=== PATIENT | male | born 1950 | race Caucasian/White ===

== ENCOUNTER 2017-03-20 23:31 | Emergency (ER) | END 2017-03-21 05:33 | disposition home or self-care (01) ==

== ENCOUNTER 2018-07-16 18:39 | Inpatient (IN) | payer MEDICAID ==
[~2018-07-16] VITALS: Ht 165.1 cm; Wt 62.0 kg
[~2018-07-16 18:39] MED LIST: CHOL100062 PO; CIPR500T4 PO; HYDR-762 PO; IBUP-1541 PO
[2018-07-16] MEDS ORDERED: FAMOTIDINE 20 MG INJ IV STA (20:28)
[2018-07-16] MEDS ORDERED: LIDOCAINE/MYLANTA 40 ML BTL PO STA (20:28)
[2018-07-16] MEDS ORDERED: HYDROmorphONE 1 MG/ML SYG IV STA (20:28)
[2018-07-16] MEDS ORDERED: ONDANSETRON 4 MG INJ IV STA (20:28)
[2018-07-16] MEDS ORDERED: SOD CHLORIDE 0.9% 1,000 ML IV STA (20:28)
[2018-07-16] MEDS ORDERED: BELLADONNA/PHENOBARBITAL TAB PO STA (20:28)
[2018-07-16] MEDS ORDERED: IOHEXOL 300MG/ML 150 ML BTL ONE (21:58)
[2018-07-16] MEDS ORDERED: SOD CHLORIDE 0.9% 100 ML ONE (21:58)
--- NOTE | 2018-07-16 22:34 | ERD ---
ER Documentation Chief Complaint Chief Complaint AP, VOMIT, DIARRHEA X'S 2 DAYS HPI This is a 67-year-old male complaining of mid abdominal pain/right mid abdominal pain with nausea vomiting diarrhea for the past 2 days. Vomiting is nonbilious nonbloody. No blood in his diarrhea there is no melena or tarry stools. He says he has a burning epigastrium. He says he has a history of ulcers and gastritis in the past. No chest pain or shortness of breath no dysuria hematuria no fever. ROS All systems reviewed and are negative except as per history of present illness. Medications Home Meds Reported Medications Naproxen* (Naproxen*) 500 Mg Tablet, 500 MG PO BID PRN for PAIN, TAB 07/17/18 Ranitidine Hcl* (Ranitidine Hcl*) 150 Mg Tablet, 150 MG PO HS, #30 TAB 07/17/18 Losartan Potassium* (Losartan Potassium*) 100 Mg Tablet, 100 MG PO DAILY, TAB 07/17/18 Discontinued Reported Medications Cholecalciferol* (Vitamin D3*) 1,000 Unit Tablet, 1000 UNIT PO BID, TAB 10/01/14 Ibuprofen* (Ibuprofen*) 400 Mg Tablet, 400 MG PO Q12 PRN for PAIN, TAB 10/01/14 Discontinued Scripts Hydrocodone Bit-Acetaminophen* ([place]*) 10-325 Mg Tablet, 1 TAB PO Q6 PRN for PAIN, #7 TAB Prov:JOSEPH REYNOSO MD 10/01/14 Ciprofloxacin Hcl* (Ciprofloxacin Hcl*) 500 Mg Tablet, 500 MG PO BID for 7 Days, TAB Prov:JOSEPH REYNOSO MD 10/01/14 Allergies Allergies: Coded Allergies: No Known Allergy (Unverified , 10/01/14) PMhx/Soc History of Surgery: No Anesthesia Reaction: No Hx Neurological Disorder: No Hx Respiratory Disorders: No Hx Cardiac Disorders: No (HTN, HIGH CHOLESTEROL) Hx Psychiatric Problems: No Hx Miscellaneous Medical Probl: Yes (DM) Hx Alcohol Use: Yes (DAILY) Hx Substance Use: No Hx Tobacco Use: No FmHx Family History: No coronary disease Physical Exam Vitals Vital Signs Date Temp Pulse Resp B/P (MAP) Pulse Ox O2 O2 Flow FiO2 Time Delivery Rate 07/16/18 58 16 146/82 94 Room Air 22:00 (103) 07/16/18 61 16 142/87 98 Room Air 20:00 (105) 07/16/18 99.5 76 18 165/72 96 18:43 (103) Physical Exam Const: Well-developed, well-nourished Head: Atraumatic, normocephalic Eyes: Normal Conjunctiva, PERRLA, EOMI, normal sclera, no nystagmus ENT: Normal External Ears, Nose and Mouth, moist mucus membranes. Neck: Full range of motion. No meningismus, no lymphadenopathy. Resp: Clear to auscultation bilaterally, no wheezing, rhonchi, rales Cardio: Regular rate and rhythm, no murmurs, S1 S2 present Abd: Soft, mild to moderate mid abdominal/right mid abdomen and epigastric tenderness, non distended. Normal bowel sounds, no guarding or rebound, no pulsitile abdominal masses or bruits Skin: No petechiae or rashes, no ecchymosis , no maculopapular rash Back: No midline or flank tenderness Ext: No cyanosis, or edema, FROM x 4, normal inspection, neurovascularly intact x 4 Neur: Awake and alert, STR 5/5 x 4, sensation intact x 4, no focal findings, cerebellum intact Psych: Normal Mood and Affect Result Diagram: 07/16/18195707/16/181957 Results 24 hrs Laboratory Tests Test 07/16/18 19:58 White Blood Count 14.3 10^3/ul Red Blood Count 4.38 10^6/ul Hemoglobin 12.7 g/dl Hematocrit 38.4 % Mean Corpuscular Volume 87.7 fl Mean Corpuscular Hemoglobin 29.0 pg Mean Corpuscular Hemoglobin Concent 33.1 g/dl Red Cell Distribution Width 15.2 % Platelet Count 178 10^3/UL Mean Platelet Volume 9.5 fl Immature Granulocytes % 0.600 % Neutrophils % 85.2 % Lymphocytes % 4.6 % Monocytes % 5.2 % Eosinophils % 4.2 % Basophils % 0.2 % Nucleated Red Blood Cells % 0.0 /100WBC Immature Granulocytes # 0.080 10^3/ul Neutrophils # 12.2 10^3/ul Lymphocytes # 0.7 10^3/ul Monocytes # 0.7 10^3/ul Eosinophils # 0.6 10^3/ul Basophils # 0.0 10^3/ul Nucleated Red Blood Cells # 0.0 10^3/ul Sodium Level 137 mmol/L Potassium Level 3.5 mmol/L Chloride Level 97 mmol/L Carbon Dioxide Level 29 mmol/L Anion Gap 11 Blood Urea Nitrogen 12 mg/dl Creatinine 0.76 mg/dl Est Glomerular Filtrat Rate mL/min > 60 mL/min Glucose Level 113 mg/dl Calcium Level 9.1 mg/dl Total Bilirubin 1.2 mg/dl Direct Bilirubin 0.00 mg/dl Indirect Bilirubin 1.2 mg/dl Aspartate Amino Transf (AST/SGOT) 19 IU/L Alanine Aminotransferase (ALT/SGPT) 14 IU/L Alkaline Phosphatase 88 IU/L Total Protein 7.4 g/dl Albumin 4.1 g/dl Globulin 3.30 g/dl Albumin/Globulin Ratio 1.24 Lipase 55 U/L Current Medications Medications Dose Sig/Ines Start Time Status Last (Trade) Ordered Route PRN Stop Time Admin Dose Reason Admin Sodium 1,000 ml @ Q1H STAT 07/16/18 DC 07/16/18 Chloride 1,000 mls/hr IV 20:28 20:37 07/16/18 21:27 1 mg ONCE STAT 07/16/18 DC 07/16/18 Hydromorphone IV 20:28 20:37 HCl 07/16/18 20:30 (Dilaudid) Ondansetron 4 mg ONCE STAT 07/16/18 DC 07/16/18 HCl (Zofran IV 20:28 20:37 Inj) 07/16/18 20:30 Famotidine 20 mg ONCE STAT 07/16/18 DC 07/16/18 (Pepcid Iv) IV 20:28 20:37 07/16/18 20:30 40 ml ONCE STAT 07/16/18 DC 07/16/18 Miscellaneous PO 20:28 20:37 Medication 07/16/18 20:30 (Gi Cocktail (2)) Belladonna/ 2 tab ONCE STAT 07/16/18 DC 07/16/18 Phenobarbital PO 20:28 20:37 () 07/16/18 20:30 IV Flush 10 ml STK-MED 07/16/18 DC (NS 10 ml) ONCE .ROUTE 21:58 07/16/18 21:59 Sodium 100 ml @ ud STK-MED 07/16/18 DC Chloride ONCE .ROUTE 21:58 07/16/18 21:59 Iohexol 150 ml STK-MED 07/16/18 DC (Omnipaque ONCE .ROUTE 21:58 300mg/ ml) 07/16/18 21:59 Ertapenem 1 100 ml @ ONCE ONCE 07/17/18 gm/ Sodium 200 mls/hr IVPB 00:30 Chloride 07/17/18 00:59 Procedures/MDM Radiology Main Line: [phone] DIAGNOSTIC IMAGING REPORT Patient: ADOLFO DASH : 1950 Age: 67 Sex: M MR #: [id number] DOS: 07/16/182108 Ordering MD: SHELIA LEÓN DO Location: E/R Room/Bed: PROCEDURE: US Abdomen. CLINICAL INDICATION: abdominal pain TECHNIQUE: Multiple real-time images were acquired of the patient's right upper quadrant abdomen and retroperitoneum utilizing a high resolution transducer. COMPARISON: 09/21/2014 FINDINGS: The liver demonstrates normal echogenicity. The liver is normal in size and no focal solid lesions are seen. The liver measures 15.2 cm in length. The portal vein is patent with normal direction of flow. No intrahepatic biliary dilatat ion is seen. No gallstones are identified within the gallbladder. There is no pericholecystic fluid or gallbladder wall thickening. The common bile duct measures 5 mm in maximal dimension. The pancreas is not well seen due to overlying bowel gas. No free fluid is identified. The right kidney is normal in size, and demonstrate normal echogenicity and cortical thickness. The right kidney measures 10.8 cm in long dimension. There is no evidence of hydronephrosis. There are no kidney stones. RPTAT: AA IMPRESSION: Unremarkable right upper quadrant abdominal ultrasound. .Norberto Reyes MD, MD Date Time Electronically viewed and signed by .Norberto Reyes MD, on 07/16/2018 21:52 .S/ CC: SHELIA LEÓN DO [id number] DIAGNOSTIC IMAGING REPORT Patient: ADOLFO DASH : 1950 Age: 67 Sex: M [id number] DOS: 07/16/182107 Ordering MD: SHELIA LEÓN DO Location: E/R Room/Bed: PROCEDURE: CT Abdomen and Pelvis With Intravenous Contrast CLINICAL INDICATION: Abdominal pain TECHNIQUE: Axial computed tomography images of the abdomen and pelvis with intravenous contrast. Sagittal and coronal reformatted images were created and reviewed. CTDIvol (mGy) = 8.36; total DLP (mGy-cm) = 487.46. This CT exam was performed using one or more of the following dose reduction techniques: automated exposure control, adjustment of the mA and/or kV according to patient size, and/or use of iterative reconstruction technique. DICOM images are available. CONTRAST: 99 mL of Omnipaque-300 was administered intravenously. COMPARISON: CT abdomen pelvis dated 10/01/2014 (10/01/2014). FINDINGS: LUNG BASES: Unremarkable. No mass. No consolidation. ABDOMEN: LIVER: Calcified granuloma in the dome of the liver. Mild hepatomegaly noted. No focal liver masses are demonstrated. GALLBLADDER AND BILE DUCTS: Unremarkable. No calcified stones. No ductal dilation. PANCREAS: Unremarkable. No mass. No ductal dilation. SPLEEN: Unremarkable. No splenomegaly. ADRENALS: Unremarkable. No mass. KIDNEYS AND URETERS: Unremarkable. No solid mass. No hydronephrosis. STOMACH AND BOWEL: Unremarkable. No obstruction. No mucosal thickening. PELVIS: APPENDIX: The appendix is upper limit of normal in size, measuring 6 mm in maximum diameter. There is minimal stranding of the periappendiceal fat. The appendix appears slightly more prominent when compared to 10/01/2014. These findings are concerning for early appendicitis, in the proper clinical setting. BLADDER: Unremarkable. No mass. REPRODUCTIVE: Unremarkable as visualized. ABDOMEN and PELVIS: INTRAPERITONEAL SPACE: Trace of free fluid/ascites in the subhepatic space and in the pelvis. No free air. BONES/JOINTS: No acute fracture. No dislocation. SOFT TISSUES: Unremarkable. VASCULATURE: Unremarkable. LYMPH NODES: Unremarkable. No enlarged lymph nodes. IMPRESSION: 1. The appendix is upper limit of normal in size, measuring 6 mm in maximum diameter. There is minimal stranding of the periappendiceal fat. The appendix appears slightly more prominent when compared to 10/01/2014. These findings are concerning for early appendicitis, in the proper clinical setting. It is also noted the appendix extends cephalad toward the subhepatic space, which may localize pain to the right upper quadrant. Please correlate with additional laboratory data and physical exam. 2. Trace of free fluid/ascites in the subhepatic space and in the pelvis. No loculated fluid collection/abscess. This report contains findings which may be critical to patient care. Findings were discussed by telephone with Dr. León on 07/17/2018 at 12:20 a.m.. The findings were acknowledged and understood. RPTAT: [facility] Cynthia Mejia Physician Extended Day Teacher Date Time Electronically viewed and signed by Cynthia Mejia Physician Extended Day Teacher on 07/17/2018 00:22 RmC/ CC: SHELIA LEÓN DO [id number] Spoke with general surgeon Dr. Amezquita and will give 1 g of Invanz admit for appendicitis Departure Diagnosis: Primary Impression: Appendicitis Appendicitis type: acute appendicitis Acute appendicitis type: unspecified acute appendicitis type Qualified Codes: K35.80 - Unspecified acute appendicitis Condition: Stable SHELIA LEÓN DO July 16, 2018 22:34
[2018-07-17] MEDS ORDERED: LOSA100T15 PO (00:30)
[2018-07-17] MEDS ORDERED: RANI150T5 PO (00:30)
[2018-07-17] MEDS ORDERED: NAPR-688 PO (00:30)
[2018-07-17] MEDS ORDERED: ERTAPENEM SODIUM 1 GM in SOD CHLORIDE 0.9% 100 ML IVPB ONE (00:30)
--- NOTE | 2018-07-17 00:50 | CONS ---
Assessment/Plan Assessment/Plan Hospital Course (Demo Recall) 1. Acute abdominal pain 2. Diarrhea 3. Nausea vomiting 3. Leukocytosis 4. Acute appendicitis without appendicolith -Spoke to patient through a door liner helper. Gave him options of surgery versus medical conservative management and all risk benefits alternatives were fully explained to patient. At this time he chooses to proceed without surgery and continue antibiotics. That would be about 2 days of IV antibiotics and about 8 days of oral antibiotics. -Pain control -Judicious fluid management 5. Diabetes, hypertension, dyslipidemia -Nutrition and medication optimization 6. Heavy alcohol consumption -Cessation highly encouraged. 7. Possible fractured right clavicle -X-ray and possible orthopedic consultation per medical team Thank you very much for consulting this patient's care, Consultation Date/Type/Reason Admit Date/Time Date of Consultation: July 17, 2018 Type of Consult General surgical Reason for Consultation Abdominal pain Leukocytosis Acute appendicitis Requesting Provider: SHELIA LEÓN DO Date/Time of Note DATE: 07/17/18 TIME: 00:44 Hx of Present Illness Lencho Esparza is a 67-year-old male with multiple comorbidities who presents with abdominal pain in the right side associated with nausea vomiting and chills but no fevers for the past 2 days. He has had some diarrhea. No previous history of the same. Pain does not radiate. No chest pain or shortness of breath. No cough, seizure, visual, neurologic changes. No dysuria. No trauma or sick contacts. No headache. His work-up identifies leukocytosis and CT diagnosis of acute appendicitis. No appendicolith. Surgical consult is obtained further evaluation and treatment. 12 point review of system negative unless otherwise addressed in chart. Patient reports fracture of the right clavicle 8 months ago however he is not sought care. Past Medical History Diabetic Hypertensive Dyslipidemia Gastritis/peptic ulcer disease Daily alcohol use Home Meds Reported Medications Naproxen* (Naproxen*) 500 Mg Tablet, 500 MG PO BID PRN for PAIN, TAB 07/17/18 Ranitidine Hcl* (Ranitidine Hcl*) 150 Mg Tablet, 150 MG PO HS, #30 TAB 07/17/18 Losartan Potassium* (Losartan Potassium*) 100 Mg Tablet, 100 MG PO DAILY, TAB 07/17/18 Discontinued Reported Medications Cholecalciferol* (Vitamin D3*) 1,000 Unit Tablet, 1000 UNIT PO BID, TAB 10/01/14 Ibuprofen* (Ibuprofen*) 400 Mg Tablet, 400 MG PO Q12 PRN for PAIN, TAB 10/01/14 Discontinued Scripts Hydrocodone Bit-Acetaminophen* ([place]*) 10-325 Mg Tablet, 1 TAB PO Q6 PRN for PAIN, #7 TAB Prov:JOSEPH REYNOSO MD 10/01/14 Ciprofloxacin Hcl* (Ciprofloxacin Hcl*) 500 Mg Tablet, 500 MG PO BID for 7 Days, TAB Prov:JOSEPH REYNOSO MD 10/01/14 Medications Current Medications Ertapenem 1 gm/ Sodium Chloride 100 ml @ 200 mls/hr ONCE ONCE IVPB ; Start 07/17/18 at 00:30; Stop 07/17/18 at 00:59 Ondansetron HCl (Zofran Inj) 4 mg BRIDGE ORDER PRN IV NAUSEA/VOMITING; Start 07/17/18 at 01:00; Stop 07/18/18 at 00:59 Acetaminophen (Tylenol Tab) 650 mg ER BRIDGE PRN PO .MILD PAIN 1-3 OR TEMP; Start 07/17/18 at 01:00; Stop 07/18/18 at 00:59 Allergies: Coded Allergies: No Known Allergy (Unverified , 10/01/14) Past Surgical History Past Surgical Hx: no surgical history Family History Significant Family History: no pertinent family hx Social History Collects recyclables Alcohol Use: heavy (Several large drinks per day) Smoking Status: Never smoker Drug Use: none Exam/Review of Systems Exam Vitals Vital Signs Date Temp Pulse Resp B/P (MAP) Pulse Ox O2 O2 Flow FiO2 Time Delivery Rate 07/16/18 58 16 146/82 94 Room Air 22:00 (103) 07/16/18 99.5 18:43 Constitutional: alert, oriented; No distress Psych: nl mood/affect; No anxiety Head: normocephalic, atraumatic Eyes: nl conjunctiva, EOMI; No PERRL ENMT: nl external ears & nose, mucosa pink and moist Neck: supple, non-tender; No jvd Respiratory: normal air movement; No congested cough, No labored breathing Cardiovascular: regular rate and rhythm; No edema Gastrointestinal: soft, tender (Tender in the right lower quadrant); No distended, No rebound or guarding Genitourinary - Male: nl penis, nl scrotum Musculoskeletal: nl extremities to inspection, other (Right clavicular deformity probable fracture); No joint tenderness Extremities: normal pulses; No calf tenderness Neurological: nl mental status, nl speech, nl strength Skin: nl turgor; No rash or lesions, No diaphoresis Lymph: nl lymph nodes Results Result Diagram: 07/16/18195707/16/181957 Results 24hrs Laboratory Tests Test 07/16/18 19:58 White Blood Count 14.3 #H Red Blood Count 4.38 L Hemoglobin 12.7 L Hematocrit 38.4 L Mean Corpuscular Volume 87.7 Mean Corpuscular Hemoglobin 29.0 Mean Corpuscular Hemoglobin Concent 33.1 Red Cell Distribution Width 15.2 H Platelet Count 178 # Mean Platelet Volume 9.5 Immature Granulocytes % 0.600 H Neutrophils % 85.2 H Lymphocytes % 4.6 L Monocytes % 5.2 Eosinophils % 4.2 Basophils % 0.2 Nucleated Red Blood Cells % 0.0 Immature Granulocytes # 0.080 H Neutrophils # 12.2 H Lymphocytes # 0.7 L Monocytes # 0.7 Eosinophils # 0.6 H Basophils # 0.0 Nucleated Red Blood Cells # 0.0 Sodium Level 137 Potassium Level 3.5 Chloride Level 97 Carbon Dioxide Level 29 Anion Gap 11 Blood Urea Nitrogen 12 Creatinine 0.76 Est Glomerular Filtrat Rate mL/min > 60 Glucose Level 113 Calcium Level 9.1 Total Bilirubin 1.2 Direct Bilirubin 0.00 Indirect Bilirubin 1.2 H Aspartate Amino Transf (AST/SGOT) 19 Alanine Aminotransferase (ALT/SGPT) 14 Alkaline Phosphatase 88 Total Protein 7.4 Albumin 4.1 Globulin 3.30 H Albumin/Globulin Ratio 1.24 Lipase 55 Medications Medication Current Medications Ertapenem 1 gm/ Sodium Chloride 100 ml @ 200 mls/hr ONCE ONCE IVPB ; Start 07/17/18 at 00:30; Stop 07/17/18 at 00:59 Ondansetron HCl (Zofran Inj) 4 mg BRIDGE ORDER PRN IV NAUSEA/VOMITING; Start 07/17/18 at 01:00; Stop 07/18/18 at 00:59 Acetaminophen (Tylenol Tab) 650 mg ER BRIDGE PRN PO .MILD PAIN 1-3 OR TEMP; Start 07/17/18 at 01:00; Stop 07/18/18 at 00:59 MYRA CHENG MD July 17, 2018 00:50
[2018-07-17] MEDS ORDERED: DOCUSATE SODIUM 100 MG CAP PO PRN (01:00)
[2018-07-17] MEDS ORDERED: NACL 0.9% 3 ML SYG IV SCH (01:00)
[2018-07-17] MEDS ORDERED: BISACODYL (EC) 5 MG TAB PO PRN (01:00)
[2018-07-17] MEDS ORDERED: ACETAMINOPHEN 325 MG TAB PO PRN ×2 (01:00)
[2018-07-17] MEDS ORDERED: NAPROXEN 500 MG TAB PO PRN (01:00)
[2018-07-17] MEDS ORDERED: morphine 2 MG INJ IV PRN (01:00)
[2018-07-17] MEDS ORDERED: ONDANSETRON 4 MG INJ IV PRN ×2 (01:00)
--- NOTE | 2018-07-17 01:02 | HP ---
Date/Time of Note Date/Time of Note DATE: 07/17/18 TIME: 01:02 Assessment/Plan VTE Prophylaxis SCD applied (from Nsg): Yes Pharmacological prophylaxis: NA/contraindicated Pharm contraindication: low risk/ambulating Lines/Catheters IV Catheter Type (from Nrsg): Saline Lock Assessment/Plan Hospital Course This is a 67-year-old male being admitted to the [facility] floor for: #1 Acute appendicitis: Patient was seen by the surgeon however he chose to pursue medical management instead of surgery. At the current time will be started on IV antibiotics with transition to p.o. We will start the patient on Zosyn 3.375 every 6 hours. He did receive a dose of ertapenem in the ED. The patient n.p.o. Zofran for nausea. Pain management. #2 heavy alcohol use: Check an ethanol level. PRN Ativan, Librium taper, banana bag, MVI, folic acid #3 hypertension: Resume losartan continue to monitor #4 hyperlipidemia: Check lipid panel #5 DVT GI prophylaxis: SCDs, no GI prophylaxis indicated Further treatment strategy will be implemented as per the clinical course. Result Diagram: 07/16/18195707/16/181957 Results 24hrs Laboratory Tests Test 07/16/18 19:58 White Blood Count 14.3 #H Red Blood Count 4.38 L Hemoglobin 12.7 L Hematocrit 38.4 L Mean Corpuscular Volume 87.7 Mean Corpuscular Hemoglobin 29.0 Mean Corpuscular Hemoglobin Concent 33.1 Red Cell Distribution Width 15.2 H Platelet Count 178 # Mean Platelet Volume 9.5 Immature Granulocytes % 0.600 H Neutrophils % 85.2 H Lymphocytes % 4.6 L Monocytes % 5.2 Eosinophils % 4.2 Basophils % 0.2 Nucleated Red Blood Cells % 0.0 Immature Granulocytes # 0.080 H Neutrophils # 12.2 H Lymphocytes # 0.7 L Monocytes # 0.7 Eosinophils # 0.6 H Basophils # 0.0 Nucleated Red Blood Cells # 0.0 Sodium Level 137 Potassium Level 3.5 Chloride Level 97 Carbon Dioxide Level 29 Anion Gap 11 Blood Urea Nitrogen 12 Creatinine 0.76 Est Glomerular Filtrat Rate mL/min > 60 Glucose Level 113 Calcium Level 9.1 Total Bilirubin 1.2 Direct Bilirubin 0.00 Indirect Bilirubin 1.2 H Aspartate Amino Transf (AST/SGOT) 19 Alanine Aminotransferase (ALT/SGPT) 14 Alkaline Phosphatase 88 Total Protein 7.4 Albumin 4.1 Globulin 3.30 H Albumin/Globulin Ratio 1.24 Lipase 55 HPI/ROS Admit Date/Time Admit Date/Time Hx of Present Illness Complaint: Abdominal pain x2 days This is a 67-year-old homeless male complaining of mid abdominal pain/right mid abdominal pain with nausea vomiting diarrhea for the past 2 days. Vomiting is nonbilious nonbloody. No blood in his diarrhea there is no melena or tarry stools. He says he has a burning epigastrium. He does report subjective fevers. He says he has a history of ulcers and gastritis in the past. He denies any chest pain or shortness of breath. She does report that he drinks 32 ounces of alcohol on a daily basis. His last drink was yesterday. Allergies: NKDA Medications: Losartan Naproxen Famotidine ROS Const: As per HPI Eyes : No pain discharge or redness or change in visual acuity ENT: No pain, sore throat, congestion, congestion, dysphagia or discharge Respiratory: No shortness of breath, cough, sputum, wheezing, or pleuritic pain Cardiovascular: No chest pain, palpitation, PND, or edema GI : As per HPI Genitourinary: No dysuria, hematuria, flank pain , discharge or CVA tenderness Musculoskeletal: No joint pain, back pain, neck pain, restricted range of motion in neck or joints Skin: No rash, bruising or hives Neuro: No headache, dizziness, syncope, seizure, focal weakness Endocrine: No polyuria, polydipsia, temperature intolerance Psych: No hallucination, depression, anxiety or suicidal ideation PMH/Family/Social Past Medical History Hypertension, hyperlipidemia, gastritis Medications Current Medications Ondansetron HCl (Zofran Inj) 4 mg BRIDGE ORDER PRN IV NAUSEA/VOMITING; Start 07/17/18 at 01:00; Stop 07/18/18 at 00:59 Acetaminophen (Tylenol Tab) 650 mg ER BRIDGE PRN PO .MILD PAIN 1-3 OR TEMP; Start 07/17/18 at 01:00; Stop 07/18/18 at 00:59 Coded Allergies: No Known Allergy (Unverified , 10/01/14) Past Surgical History 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 The pupils are equal, round and reactive. Extraocular motor are intact Neck: Supple with full range of motion. No rigidity or meningismus Chest: Nontender Lungs: Clear to auscultation bilaterally no crackles rales or wheezing Heart: Normal S1-S2, Regular rhythm and rate. No overt murmurs appreciated on auscultation Abdomen: Soft, tenderness to the right lower quadrant, no guarding. Normal bowel sounds. 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 Sagittal and coronal reformatted images were created and reviewed. CTDIvol (mGy) = 8.36; total DLP (mGy-cm) = 487.46. This CT exam was performed using one or more of the following dose reduction techniques: automated exposure control, adjustment of the mA and/or kV according to patient size, and/or use of iterative reconstruction technique. DICOM images are available. CONTRAST: 99 mL of Omnipaque-300 was administered intravenously. COMPARISON: CT abdomen pelvis dated 10/01/2014 (10/01/2014). FINDINGS: LUNG BASES: Unremarkable. No mass. No consolidation. ABDOMEN: LIVER: Calcified granuloma in the dome of the liver. Mild hepatomegaly noted. No focal liver masses are demonstrated. GALLBLADDER AND BILE DUCTS: Unremarkable. No calcified stones. No ductal dilation. PANCREAS: Unremarkable. No mass. No ductal dilation. SPLEEN: Unremarkable. No splenomegaly. ADRENALS: Unremarkable. No mass. KIDNEYS AND URETERS: Unremarkable. No solid mass. No hydronephrosis. STOMACH AND BOWEL: Unremarkable. No obstruction. No mucosal thickening. PELVIS: APPENDIX: The appendix is upper limit of normal in size, measuring 6 mm in m aximum diameter. There is minimal stranding of the periappendiceal fat. The appendix appears slightly more prominent when compared to 10/01/2014. These findings are concerning for early appendicitis, in the proper clinical setting. BLADDER: Unremarkable. No mass. REPRODUCTIVE: Unremarkable as visualized. ABDOMEN and PELVIS: INTRAPERITONEAL SPACE: Trace of free fluid/ascites in the subhepatic space and in the pelvis. No free air. BONES/JOINTS: No acute fracture. No dislocation. SOFT TISSUES: Unremarkable. VASCULATURE: Unremarkable. LYMPH NODES: Unremarkable. No enlarged lymph nodes. IMPRESSION: 1. The appendix is upper limit of normal in size, measuring 6 mm in maximum diameter. There is minimal stranding of the periappendiceal fat. The appendix appears slightly more prominent when compared to 10/01/2014. These findings are concerning for early appendicitis, in the proper clinical setting. It is also noted the appendix extends cephalad toward the subhepatic space, which may localize pain to the right upper quadrant. Please correlate with additional laboratory data and physical exam. 2. Trace of free fluid/ascites in the subhepatic space and in the pelvis. No loculated fluid collection/abscess. This report contains findings which may be critical to patient care. Findings were discussed by telephone with Dr. León on 07/17/2018 at 12:20 a.m.. The findings were acknowledged and understood. RPTAT: [facility] Cynthia Mejia Physician Esol Teacher Date Time Electronically viewed and signed by Cynthia Mejia Physician Esol Teacher on 07/17/2018 00:22 RmC/ CC: SHELIA LEÓN DO [id number] PROCEDURE: US Abdomen. CLINICAL INDICATION: abdominal pain TECHNIQUE: Multiple real-time images were acquired of the patient's right upper quadrant abdomen and retroperitoneum utilizing a high resolution transducer. COMPARISON: 09/21/2014 FINDINGS: The liver demonstrates normal echogenicity. The liver is normal in size and no focal solid lesions are seen. The liver measures 15.2 cm in length. The portal vein is patent with normal direction of flow. No intrahepatic biliary dilatation is seen. No gallstones are identified within the gallbladder. There is no pericholecystic fluid or gallbladder wall thickening. The common bile duct measures 5 mm in maximal dimension. The pancreas is not well seen due to overlying bowel gas. No free fluid is identified. The right kidney is normal in size, and demonstrate normal echogenicity and cortical thickness. The right kidney measures 10.8 cm in long dimension. There is no evidence of hydronephrosis. There are no kidney stones. RPTAT: [facility] IMPRESSION: Unremarkable right upper quadrant abdominal ultrasound. .Norberto Reyes MD, Date Time Electronically viewed and signed by .Norberto Reyes MD, on 07/16/2018 21:52 .S/ CC: SHELIA LEÓN DO [id number] PROCEDURE: Right clavicular series CLINICAL INDICATION: Trauma TECHNIQUE: 2 views right clavicle were obtained COMPARISON: None FINDINGS: No evidence of acute fracture dislocation or acromioclavicular joint separation. The bony mineralization is normal. No focal bony blastic or lytic lesions. Soft tissues are unremarkable. IMPRESSION: No evidence of acute fracture dislocation or acromioclavicular joint separation. RPTAT:AAJJ Physician Latonia Date Time Electronically viewed and signed by Physician Latonia on 07/17/2018 04:21 BM/ CC: SHELIA LEÓN DO [id number] CASH BRADFORD July 17, 2018 01:02
[2018-07-17 02:00] VITALS: BP 141/68; PULSE 72; RESP 19
[2018-07-17] MEDS: SOD CHLORIDE 0.9% 1,000 ML IV SCH ×2 (02:51→07:35)
[2018-07-17] MEDS: PIPER-TAZO 3.375 GM IV (PMX) 100 ML IVPB SCH ×4 (05:44→23:55)
[2018-07-17] MEDS ORDERED: MULTIVITAMINS 10 ML, THIAMINE 100 MG, FOLIC ACID 1 MG in SOD CHLORIDE 0.9% 1,000 ML IVPB SCH (07:00)
[2018-07-17] MEDS ORDERED: LORAZEPAM 2 MG INJ IV PRN ×2 (07:00)
[2018-07-17 08:36] VITALS: BP 157/72; PULSE 58; RESP 18
[2018-07-17] MEDS ORDERED: POTASSIUM CHLORIDE 20 MEQ in SOD CHLORIDE 0.9% 1,000 ML IV SCH (08:55)
[2018-07-17] MEDS: THIAMINE 100 MG TAB PO SCH (09:21)
[2018-07-17] MEDS: LOSARTAN 50 MG TAB PO SCH (09:22)
[2018-07-17] MEDS: CHLORDIAZEPOXIDE 25 MG CAP PO SCH ×3 (09:22→20:36)
[2018-07-17] MEDS: FOLIC ACID 1 MG TAB PO SCH (09:22)
--- NOTE | 2018-07-17 11:10 | PN ---
Date/Time of Note Date/Time of Note DATE: 07/17/18 TIME: 11:10 Assessment/Plan VTE Prophylaxis Risk score (from Ns)>0 risk: 2 SCD applied (from Ns): Yes Pharmacological prophylaxis: NA/contraindicated Pharm contraindication: low risk/ambulating Lines/Catheters IV Catheter Type (from Nrsg): Peripheral IV Assessment/Plan Assessment/Plan 1. Acute appendicitis - general surgery consultation appreciated and will continue conservative treatment since patient does not want surgery at this time - continue IV antibiotics and pain control - once pain improves, will start diet and advance as tolerated. If not tolerating, may need surgical intervention 2. heavy alcohol use - etoh levels negative - will continue quick librium taper and monitor for DTs 3. HTN - continue losartan and will adjust as needed 4. Disposition - Continue IV antibiotics and monitor for improvement in pain before starting diet. Result Diagram: 07/17/18 0507 07/17/18 0507 Results 24hrs Laboratory Tests Test 07/16/18 19:58 07/17/18 05:07 07/17/18 05:08 White Blood Count 14.3 #H 13.1 H Red Blood Count 4.38 L 3.96 L Hemoglobin 12.7 L 11.5 L Hematocrit 38.4 L 34.5 L Mean Corpuscular Volume 87.7 87.1 Mean Corpuscular Hemoglobin 29.0 29.0 Mean Corpuscular Hemoglobin Concent 33.1 33.3 Red Cell Distribution Width 15.2 H 15.1 H Platelet Count 178 # 164 Mean Platelet Volume 9.5 9.9 Immature Granulocytes % 0.600 H 0.500 H Neutrophils % 85.2 H 80.8 H Lymphocytes % 4.6 L 4.7 L Monocytes % 5.2 5.7 Eosinophils % 4.2 8.0 H Basophils % 0.2 0.3 Nucleated Red Blood Cells % 0.0 0.0 Immature Granulocytes # 0.080 H 0.070 H Neutrophils # 12.2 H 10.6 H Lymphocytes # 0.7 L 0.6 L Monocytes # 0.7 0.7 Eosinophils # 0.6 H 1.1 H Basophils # 0.0 0.0 Nucleated Red Blood Cells # 0.0 0.0 Sodium Level 137 137 Potassium Level 3.5 3.4 L Chloride Level 97 104 Carbon Dioxide Level 29 25 Anion Gap 11 8 Blood Urea Nitrogen 12 11 Creatinine 0.76 0.71 Est Glomerular Filtrat Rate mL/min > 60 > 60 Glucose Level 113 92 Calcium Level 9.1 8.3 L Total Bilirubin 1.2 0.9 Direct Bilirubin 0.00 0.00 Indirect Bilirubin 1.2 H 0.9 Aspartate Amino Transf (AST/SGOT) 19 16 Alanine Aminotransferase (ALT/SGPT) 14 12 L Alkaline Phosphatase 88 72 Total Protein 7.4 6.2 # Albumin 4.1 3.2 L Globulin 3.30 H 3.00 Albumin/Globulin Ratio 1.24 1.06 Lipase 55 Hemoglobin A1c 5.3 Magnesium Level 2.2 Triglycerides Level 78 Cholesterol Level 132 LDL Cholesterol, Calculated 59 HDL Cholesterol 57 Cholesterol/HDL Ratio 2.3 Thyroid Stimulating Hormone (TSH) 1.410 Ethyl Alcohol Level < 10.0 H Subjective 24 Hr Interval Summary Free Text/Dictation Patient still with pain RLQ and discussed once pain improves will start diet. If unable to tolerate may need surgical intervention. Exam/Review of Systems Exam Vitals Vital Signs Date Temp Pulse Resp B/P (MAP) Pulse Ox O2 O2 Flow FiO2 Time Delivery Rate 07/17/18 99.3 58 18 157/72 95 Room Air 08:36 (100) Intake and Output 07/16/18 07/16/18 07/17/18 1414:59 22:59 06:59 IntakeIntake Total 300 ml BalanceBalance 300 ml Exam General: no acute distress, disheveled Neck: Supple Chest: Nontender Lungs: Clear to auscultation bilaterally no crackles rales or wheezing Heart: Normal S1-S2, Regular rhythm and rate. No overt murmurs appreciated on auscultation Abdomen: Soft, tenderness to the right lower quadrant, no guarding. Normal bowel sounds. Extremities: Normal to inspection, no edema no cyanosis Results Results 24hrs Laboratory Tests Test 07/16/18 19:58 07/17/18 05:07 07/17/18 05:08 White Blood Count 14.3 #H 13.1 H Red Blood Count 4.38 L 3.96 L Hemoglobin 12.7 L 11.5 L Hematocrit 38.4 L 34.5 L Mean Corpuscular Volume 87.7 87.1 Mean Corpuscular Hemoglobin 29.0 29.0 Mean Corpuscular Hemoglobin Concent 33.1 33.3 Red Cell Distribution Width 15.2 H 15.1 H Platelet Count 178 # 164 Mean Platelet Volume 9.5 9.9 Immature Granulocytes % 0.600 H 0.500 H Neutrophils % 85.2 H 80.8 H Lymphocytes % 4.6 L 4.7 L Monocytes % 5.2 5.7 Eosinophils % 4.2 8.0 H Basophils % 0.2 0.3 Nucleated Red Blood Cells % 0.0 0.0 Immature Granulocytes # 0.080 H 0.070 H Neutrophils # 12.2 H 10.6 H Lymphocytes # 0.7 L 0.6 L Monocytes # 0.7 0.7 Eosinophils # 0.6 H 1.1 H Basophils # 0.0 0.0 Nucleated Red Blood Cells # 0.0 0.0 Sodium Level 137 137 Potassium Level 3.5 3.4 L Chloride Level 97 104 Carbon Dioxide Level 29 25 Anion Gap 11 8 Blood Urea Nitrogen 12 11 Creatinine 0.76 0.71 Est Glomerular Filtrat Rate mL/min > 60 > 60 Glucose Level 113 92 Calcium Level 9.1 8.3 L Total Bilirubin 1.2 0.9 Direct Bilirubin 0.00 0.00 Indirect Bilirubin 1.2 H 0.9 Aspartate Amino Transf (AST/SGOT) 19 16 Alanine Aminotransferase (ALT/SGPT) 14 12 L Alkaline Phosphatase 88 72 Total Protein 7.4 6.2 # Albumin 4.1 3.2 L Globulin 3.30 H 3.00 Albumin/Globulin Ratio 1.24 1.06 Lipase 55 Hemoglobin A1c 5.3 Magnesium Level 2.2 Triglycerides Level 78 Cholesterol Level 132 LDL Cholesterol, Calculated 59 HDL Cholesterol 57 Cholesterol/HDL Ratio 2.3 Thyroid Stimulating Hormone (TSH) 1.410 Ethyl Alcohol Level < 10.0 H Medications Medication Current Medications Ondansetron HCl (Zofran Inj) 4 mg BRIDGE ORDER PRN IV NAUSEA/VOMITING; Start 07/17/18 at 01:00; Stop 07/18/18 at 00:59 Acetaminophen (Tylenol Tab) 650 mg ER BRIDGE PRN PO .MILD PAIN 1-3 OR TEMP; Start 07/17/18 at 01:00; Stop 07/18/18 at 00:59 Piperacillin Sod/ Tazobactam Sod 100 ml @ 200 mls/hr Q6 IVPB Last administered on 07/17/18at 05:44; Admin Dose 200 MLS/HR; Start 07/17/18 at 06:00 Losartan Potassium (Cozaar) 100 mg DAILY PO Last administered on 07/17/18at 09:22; Admin Dose 100 MG; Start 07/17/18 at 09:00 Ranitidine HCl (Zantac) 150 mg HS PO ; Start 07/17/18 at 21:00 IV Flush (NS 3 ml) 3 ml PER PROTOCOL IV ; Start 07/17/18 at 01:00 Ondansetron HCl (Zofran Inj) 4 mg Q4 PRN IV NAUSEA/VOMITING; Start 07/17/18 at 01:00 Acetaminophen (Tylenol Tab) 650 mg Q6H PRN PO .PAIN 1-3 OR TEMP; Start 07/17/18 at 01:00 Morphine Sulfate (morphine) 4 mg Q4H PRN IV .SEVERE PAIN 7-10; Start 07/17/18 at 01:00 Docusate Sodium (Colace) 100 mg Q12H PRN PO .CONSTIPATION; Start 07/17/18 at 01:00 Bisacodyl (Dulcolax) 5 mg DAILY PRN PO .CONSTIPATION; Start 07/17/18 at 01:00 Miscellaneous Information Patients own medicat... BID@ XX ; Start 07/17/18 at 10:00 Lorazepam (Ativan) 1 mg Q2H PRN IV CONTROL WITHDRAWAL SYMPTOMS; Start 07/17/18 at 07:00 Multivitamins Therapeutic (Theragran) 1 tab DAILY PO ; Start 07/18/18 at 09:00 Thiamine HCl (Vitamin B1) 200 mg DAILY PO Last administered on 07/17/18at 09:21; Admin Dose 200 MG; Start 07/17/18 at 09:00; Stop 07/22/18 at 08:59 Folic Acid (Folic Acid) 1 mg DAILY PO Last administered on 07/17/18at 09:22; Admin Dose 1 MG; Start 07/17/18 at 09:00 Chlordiazepoxide (Librium) 50 mg TID PO Last administered on 07/17/18at 09:22; Admin Dose 50 MG; Start 07/17/18 at 09:00; Stop 07/18/18 at 08:59 Chlordiazepoxide (Librium) 25 mg QID PO ; Start 07/18/18 at 09:00; Stop 07/19/18 at 08:59 Chlordiazepoxide (Librium) 25 mg TID PO ; Start 07/19/18 at 09:00; Stop 07/20/18 at 08:59 Potassium Chloride 20 meq/ Sodium Chloride 1,010 ml @ 100 mls/hr Q10H6M IV ; Start 07/17/18 at 08:55 JUNIOR ABBOTT MD July 17, 2018 11:10
[2018-07-17] MEDS: NS + KCL 20 MEQ 1,000 ML IV SCH ×2 (12:32→23:55)
[2018-07-17 15:25] VITALS: BP 161/79; PULSE 65; RESP 18
[2018-07-17 19:58] VITALS: BP 159/81; PULSE 72; RESP 18
[2018-07-17] MEDS ORDERED: RANITIDINE 150 MG TAB PO SCH (21:00)
[2018-07-18 01:23] VITALS: BP 196/86; PULSE 61; RESP 19
[2018-07-18 01:36] VITALS: BP 158/77; PULSE 54
[2018-07-18] MEDS: PIPER-TAZO 3.375 GM IV (PMX) 100 ML IVPB SCH ×3 (05:52→17:38)
[2018-07-18 08:23] VITALS: BP 145/71; PULSE 72; RESP 17
[2018-07-18] MEDS: NS + KCL 20 MEQ 1,000 ML IV SCH ×2 (08:30→12:20)
[2018-07-18] MEDS ORDERED: POTASSIUM CHLORIDE (SR) 20 MEQ TAB PO STA (08:59)
[2018-07-18] MEDS ORDERED: CHLORDIAZEPOXIDE 25 MG CAP PO SCH (09:00)
[2018-07-18] MEDS: FOLIC ACID 1 MG TAB PO SCH (09:11)
[2018-07-18] MEDS: CHLORDIAZEPOXIDE 25 MG CAP PO SCH ×3 (09:11→20:24)
[2018-07-18] MEDS: LOSARTAN 50 MG TAB PO SCH (09:11)
[2018-07-18] MEDS: THIAMINE 100 MG TAB PO SCH (09:11)
[2018-07-18] MEDS: MULTIVITAMINS THERAPEUTIC TAB PO SCH (09:12)
[2018-07-18] MEDS ORDERED: SUCRALFATE 1 GM TAB PO SCH (11:00)
--- NOTE | 2018-07-18 11:19 | PN ---
Date/Time of Note Date/Time of Note DATE: 07/18/18 TIME: 11:19 Assessment/Plan VTE Prophylaxis Risk score (from Nsg)>0 risk: 2 SCD applied (from Nsg): Yes Pharmacological prophylaxis: NA/contraindicated Pharm contraindication: low risk/ambulating Lines/Catheters IV Catheter Type (from Nrsg): Peripheral IV Assessment/Plan Assessment/Plan 1. Acute appendicitis - still with pain but denies RLQ. Will continue monitoring for improvement and advance as tolerated. Started on PPI BID and Carafate to help with abdominal discomfort - general surgery consultation appreciated and will continue conservative treatment - continue IV antibiotics and pain control 2. heavy alcohol use - etoh levels negative - will continue quick librium taper and monitor for DTs - given history, most likely with gastritis and will treat accordingly 3. HTN - continue losartan and will adjust as needed 4. Disposition - Monitor for improvement in pain and advance diet as tolerated Result Diagram: 07/18/1852107/18/18521 Results 24hrs Laboratory Tests Test 07/17/18 23:06 07/18/18 05:22 Urine Opiates Screen Positive Urine Barbiturates Positive Urine Amphetamines Screen Negative Urine Benzodiazepines Screen Negative Urine Cocaine Screen Negative Urine Cannabinoids Negative White Blood Count 10.8 Red Blood Count 4.04 L Hemoglobin 11.9 L Hematocrit 35.5 L Mean Corpuscular Volume 87.9 Mean Corpuscular Hemoglobin 29.5 Mean Corpuscular Hemoglobin Concent 33.5 Red Cell Distribution Width 15.0 H Platelet Count 179 Mean Platelet Volume 9.7 Immature Granulocytes % 0.500 H Neutrophils % 66.9 Lymphocytes % 9.2 L Monocytes % 8.1 Eosinophils % 15.0 H Basophils % 0.3 Nucleated Red Blood Cells % 0.0 Immature Granulocytes # 0.050 H Neutrophils # 7.2 Lymphocytes # 1.0 Monocytes # 0.9 Eosinophils # 1.6 H Basophils # 0.0 Nucleated Red Blood Cells # 0.0 Sodium Level 138 Potassium Level 3.2 L Chloride Level 107 Carbon Dioxide Level 25 Anion Gap 6 Blood Urea Nitrogen 9 Creatinine 0.80 Est Glomerular Filtrat Rate mL/min > 60 Glucose Level 105 Calcium Level 7.9 L Total Bilirubin 0.8 Direct Bilirubin 0.00 Indirect Bilirubin 0.8 Aspartate Amino Transf (AST/SGOT) 11 L Alanine Aminotransferase (ALT/SGPT) 14 Alkaline Phosphatase 58 Total Protein 5.6 L Albumin 2.8 L Globulin 2.80 Albumin/Globulin Ratio 1.00 Subjective 24 Hr Interval Summary Free Text/Dictation Patient still with abdominal pain but states more lower abdominal below umbilicus and epigastric area. No acute overnight events. Exam/Review of Systems Exam Vitals Vital Signs Date Temp Pulse Resp B/P (MAP) Pulse Ox O2 O2 Flow FiO2 Time Delivery Rate 07/18/18 99.3 72 17 145/71 94 08:23 (95) 07/17/18 Room Air 15:25 Intake and Output 07/17/18 07/17/18 07/18/18 1515:00 23:00 07:00 IntakeIntake Total 400 ml 1200 ml 1150 ml OutputOutput Total 150 ml 400 ml 300 ml BalanceBalance 250 ml 800 ml 850 ml Exam General: no acute distress, answering questions appropriately but mumbling so difficult to understand Neck: Supple Chest: Nontender Lungs: Clear to auscultation bilaterally no crackles rales or wheezing Heart: Normal S1-S2, Regular rhythm and rate. No overt murmurs appreciated on auscultation Abdomen: Soft, mildly tender epigastric and below umbilicus. Normal bowel sounds. Extremities: Normal to inspection, no edema no cyanosis Results Results 24hrs Laboratory Tests Test 07/17/18 23:06 07/18/18 05:22 Urine Opiates Screen Positive Urine Barbiturates Positive Urine Amphetamines Screen Negative Urine Benzodiazepines Screen Negative Urine Cocaine Screen Negative Urine Cannabinoids Negative White Blood Count 10.8 Red Blood Count 4.04 L Hemoglobin 11.9 L Hematocrit 35.5 L Mean Corpuscular Volume 87.9 Mean Corpuscular Hemoglobin 29.5 Mean Corpuscular Hemoglobin Concent 33.5 Red Cell Distribution Width 15.0 H Platelet Count 179 Mean Platelet Volume 9.7 Immature Granulocytes % 0.500 H Neutrophils % 66.9 Lymphocytes % 9.2 L Monocytes % 8.1 Eosinophils % 15.0 H Basophils % 0.3 Nucleated Red Blood Cells % 0.0 Immature Granulocytes # 0.050 H Neutrophils # 7.2 Lymphocytes # 1.0 Monocytes # 0.9 Eosinophils # 1.6 H Basophils # 0.0 Nucleated Red Blood Cells # 0.0 Sodium Level 138 Potassium Level 3.2 L Chloride Level 107 Carbon Dioxide Level 25 Anion Gap 6 Blood Urea Nitrogen 9 Creatinine 0.80 Est Glomerular Filtrat Rate mL/min > 60 Glucose Level 105 Calcium Level 7.9 L Total Bilirubin 0.8 Direct Bilirubin 0.00 Indirect Bilirubin 0.8 Aspartate Amino Transf (AST/SGOT) 11 L Alanine Aminotransferase (ALT/SGPT) 14 Alkaline Phosphatase 58 Total Protein 5.6 L Albumin 2.8 L Globulin 2.80 Albumin/Globulin Ratio 1.00 Medications Medication Current Medications Piperacillin Sod/ Tazobactam Sod 100 ml @ 200 mls/hr Q6 IVPB Last administered on 07/18/18at 05:52; Admin Dose 200 MLS/HR; Start 07/17/18 at 06:00 Losartan Potassium (Cozaar) 100 mg DAILY PO Last administered on 07/18/18 09:11; Admin Dose 100 MG; Start 07/17/18 at 09:00 IV Flush (NS 3 ml) 3 ml PER PROTOCOL IV ; Start 07/17/18 at 01:00 Ondansetron HCl (Zofran Inj) 4 mg Q4 PRN IV NAUSEA/VOMITING Last administered on 07/17/18at 15:33; Admin Dose 4 MG; Start 07/17/18 at 01:00 Acetaminophen (Tylenol Tab) 650 mg Q6H PRN PO .PAIN 1-3 OR TEMP; Start 07/17/18 at 01:00 Morphine Sulfate (morphine) 4 mg Q4H PRN IV .SEVERE PAIN 7-10 Last administered on 07/17/18at 15:33; Admin Dose 4 MG; Start 07/17/18 at 01:00 Docusate Sodium (Colace) 100 mg Q12H PRN PO .CONSTIPATION; Start 07/17/18 at 01:00 Bisacodyl (Dulcolax) 5 mg DAILY PRN PO .CONSTIPATION; Start 07/17/18 at 01:00 Miscellaneous Information Patients own medicat... BID@10,16 XX ; Start 07/17/18 at 10:00 Lorazepam (Ativan) 1 mg Q2H PRN IV CONTROL WITHDRAWAL SYMPTOMS; Start 07/17/18 at 07:00 Multivitamins Therapeutic (Theragran) 1 tab DAILY PO Last administered on 07/18/18 09:12; Admin Dose 1 TAB; Start 07/18/18 at 09:00 Thiamine HCl (Vitamin B1) 200 mg DAILY PO Last administered on 07/18/18at 09:11; Admin Dose 200 MG; Start 07/17/18 at 09:00; Stop 07/22/18 at 08:59 Folic Acid (Folic Acid) 1 mg DAILY PO Last administered on 07/18/18at 09:11; Admin Dose 1 MG; Start 07/17/18 at 09:00 Potassium Chloride/Sodium Chloride 1,000 ml @ 100 mls/hr Q10H IV Last administered on 07/17/18at 23:55; Admin Dose 100 MLS/HR; Start 07/17/18 at 12:30 Chlordiazepoxide (Librium) 25 mg TID PO Last administered on 07/18/18at 09:11; Admin Dose 25 MG; Start 07/18/18 at 09:00; Stop 07/19/18 at 08:59 Chlordiazepoxide (Librium) 25 mg BID PO ; Start 07/19/18 at 09:00 Pantoprazole (Protonix Tab) 40 mg BID@06,18 PO ; Start 07/18/18 at 18:00 Sucralfate (Carafate) 1 gm QID PO ; Start 07/18/18 at 11:00 JUNIOR ABBOTT MD July 18, 2018 11:19
[2018-07-18] MEDS: SUCRALFATE 1 GM TAB PO SCH ×3 (12:19→20:23)
[2018-07-18 14:26] VITALS: BP 155/85; PULSE 80; RESP 17
--- NOTE | 2018-07-18 16:49 | PN ---
Date/Time of Note Date/Time of Note DATE: 07/18/18 TIME: 16:45 Assessment/Plan Lines/Catheters IV Catheter Type (from Nrs): Peripheral IV Assessment/Plan Chief Complaint/Hosp Course 1. Acute abdominal pain, improved (none rlq, some epigastric) 2. Diarrhea, improved 3. Nausea vomiting, improved 3. Leukocytosis, resolved 4. Acute appendicitis without appendicolith -Medical management chosen by patient and thus far successful -abx -dc planning per medical team with oral abx 5. Diabetes, hypertension, dyslipidemia -Nutrition and medication optimization 6. Heavy alcohol consumption -Cessation highly encouraged. Thank you, Subjective 24 Hr Interval Summary RLQ resolved. Min epigastric pain. No f/c. No n/v. No cp/sob. No cough. No sz. No visual or neuro changes. No dysuria. Bowel function. Normal wbc. Exam/Review of Systems Vital Signs Vitals Vital Signs Date Temp Pulse Resp B/P (MAP) Pulse Ox O2 O2 Flow FiO2 Time Delivery Rate 07/18/18 98.5 80 17 155/85 92 14:26 (108) 07/17/18 Room Air 15:25 Intake and Output 07/17/18 07/17/18 07/18/18 1515:00 23:00 07:00 IntakeIntake Total 400 ml 1200 ml 1150 ml OutputOutput Total 150 ml 400 ml 300 ml BalanceBalance 250 ml 800 ml 850 ml Exam Free Text/Dictation Constitutional: alert, oriented; No distress Psych: nl mood/affect; No anxiety Head: normocephalic, atraumatic Eyes: nl conjunctiva, EOMI; No PERRL ENMT: nl external ears & nose, mucosa pink and moist Neck: supple, non-tender; No jvd Respiratory: normal air movement; No congested cough, No labored breathing Cardiovascular: regular rate and rhythm; No edema Gastrointestinal: soft, NT, ND No distended, No rebound or guarding Genitourinary - Male: nl penis, nl scrotum Musculoskeletal: nl extremities to inspection, other (Right clavicular deform ity); No joint tenderness Extremities: normal pulses; No calf tenderness Neurological: nl mental status, nl speech, nl strength Skin: nl turgor; No rash or lesions, No diaphoresis Lymph: nl lymph nodes Results Result Diagram: 07/18/1852107/18/18521 MYRA CHENG MD July 18, 2018 16:49
[2018-07-18] MEDS: PANTOPRAZOLE (EC) 40 MG TAB PO SCH (17:38)
[2018-07-18 20:00] VITALS: BP 152/70; PULSE 67; RESP 18
[2018-07-19] MEDS: PIPER-TAZO 3.375 GM IV (PMX) 100 ML IVPB SCH ×2 (00:10→06:09)
[2018-07-19] MEDS: NS + KCL 20 MEQ 1,000 ML IV SCH ×2 (00:10→11:52)
[2018-07-19 01:36] VITALS: BP 157/87; PULSE 73; RESP 18
[2018-07-19] MEDS: PANTOPRAZOLE (EC) 40 MG TAB PO SCH ×2 (06:08→17:45)
[2018-07-19 07:42] VITALS: BP 154/80; PULSE 74; RESP 18
[2018-07-19] MEDS: CHLORDIAZEPOXIDE 25 MG CAP PO SCH ×2 (08:08→21:32)
[2018-07-19] MEDS: LOSARTAN 50 MG TAB PO SCH (08:09)
[2018-07-19] MEDS: MULTIVITAMINS THERAPEUTIC TAB PO SCH (08:09)
[2018-07-19] MEDS: FOLIC ACID 1 MG TAB PO SCH (08:09)
[2018-07-19] MEDS: THIAMINE 100 MG TAB PO SCH (08:09)
[2018-07-19] MEDS: SUCRALFATE 1 GM TAB PO SCH ×4 (08:09→21:31)
[2018-07-19] MEDS ORDERED: CHLORDIAZEPOXIDE 25 MG CAP PO SCH (09:00)
--- NOTE | 2018-07-19 09:14 | PN ---
Date/Time of Note Date/Time of Note DATE: 07/19/18 TIME: 09:14 Assessment/Plan VTE Prophylaxis Risk score (from Ns)>0 risk: 2 SCD applied (from Ns): Yes Pharmacological prophylaxis: NA/contraindicated Pharm contraindication: low risk/ambulating Lines/Catheters IV Catheter Type (from Nrs): Peripheral IV Assessment/Plan Assessment/Plan 1. Acute appendicitis- resolving - Gen surgery recommendations are appreciated. Receiving 2 days of IV antibiotics and transition to PO today. Will start probiotics as well given diarrhea. advance diet as tolerated - continue pain control 2. heavy alcohol use - etoh levels negative - continue librium taper 3. Epigastric discomfort - continue on PPI and Carafate - most likely with gastritis given ETOH abuse 4. HTN - continue losartan and will adjust as needed 5. Disposition - Once tolerating PO intake with minimal pain, will d/c home. Anticipate discharge tomorrow. Result Diagram: 07/19/18 0457 07/19/18 0457 Results 24hrs Laboratory Tests Test 07/19/18 04:57 White Blood Count 8.3 # Red Blood Count 4.14 L Hemoglobin 12.2 L Hematocrit 35.9 L Mean Corpuscular Volume 86.7 Mean Corpuscular Hemoglobin 29.5 Mean Corpuscular Hemoglobin Concent 34.0 Red Cell Distribution Width 15.0 H Platelet Count 201 Mean Platelet Volume 10.1 Immature Granulocytes % 0.200 Neutrophils % 56.2 Lymphocytes % 14.3 L Monocytes % 12.6 H Eosinophils % 16.2 H Basophils % 0.5 Nucleated Red Blood Cells % 0.0 Immature Granulocytes # 0.020 Neutrophils # 4.7 Lymphocytes # 1.2 Monocytes # 1.0 H Eosinophils # 1.3 H Basophils # 0.0 Nucleated Red Blood Cells # 0.0 Sodium Level 137 Potassium Level 3.8 Chloride Level 110 Carbon Dioxide Level 24 Anion Gap 3 L Blood Urea Nitrogen 6 L Creatinine 0.67 Est Glomerular Filtrat Rate mL/min > 60 Glucose Level 108 Calcium Level 7.9 L Total Bilirubin 0.5 Direct Bilirubin 0.00 Indirect Bilirubin 0.5 Aspartate Amino Transf (AST/SGOT) 15 Alanine Aminotransferase (ALT/SGPT) 17 Alkaline Phosphatase 53 Total Protein 5.4 L Albumin 2.6 L Globulin 2.80 Albumin/Globulin Ratio 0.92 Subjective 24 Hr Interval Summary Free Text/Dictation Patient states hes experiencing diarrhea but denies any worsening of epigastric pain. No acute overnight events. Exam/Review of Systems Exam Vitals Vital Signs Date Temp Pulse Resp B/P (MAP) Pulse Ox O2 O2 Flow FiO2 Time Delivery Rate 07/19/18 99.0 74 18 154/80 94 Room Air 07:42 (104) Intake and Output 07/18/18 07/18/18 07/19/18 1515:00 23:00 07:00 IntakeIntake Total 2000 ml 1170 ml 1860 ml OutputOutput Total 650 ml 201 ml 400 ml BalanceBalance 1350 ml 969 ml 1460 ml Exam General: no acute distress, answering questions appropriately Neck: Supple Chest: Nontender Lungs: Clear to auscultation bilaterally no crackles rales or wheezing Heart: Normal S1-S2, Regular rhythm and rate. No overt murmurs appreciated on auscultation Abdomen: Soft, minimally tender epigastric and below umbilicus. Normal bowel sounds. Extremities: Normal to inspection, no edema no cyanosis Results Results 24hrs Laboratory Tests Test 07/19/18 04:57 White Blood Count 8.3 # Red Blood Count 4.14 L Hemoglobin 12.2 L Hematocrit 35.9 L Mean Corpuscular Volume 86.7 Mean Corpuscular Hemoglobin 29.5 Mean Corpuscular Hemoglobin Concent 34.0 Red Cell Distribution Width 15.0 H Platelet Count 201 Mean Platelet Volume 10.1 Immature Granulocytes % 0.200 Neutrophils % 56.2 Lymphocytes % 14.3 L Monocytes % 12.6 H Eosinophils % 16.2 H Basophils % 0.5 Nucleated Red Blood Cells % 0.0 Immature Granulocytes # 0.020 Neutrophils # 4.7 Lymphocytes # 1.2 Monocytes # 1.0 H Eosinophils # 1.3 H Basophils # 0.0 Nucleated Red Blood Cells # 0.0 Sodium Level 137 Potassium Level 3.8 Chloride Level 110 Carbon Dioxide Level 24 Anion Gap 3 L Blood Urea Nitrogen 6 L Creatinine 0.67 Est Glomerular Filtrat Rate mL/min > 60 Glucose Level 108 Calcium Level 7.9 L Total Bilirubin 0.5 Direct Bilirubin 0.00 Indirect Bilirubin 0.5 Aspartate Amino Transf (AST/SGOT) 15 Alanine Aminotransferase (ALT/SGPT) 17 Alkaline Phosphatase 53 Total Protein 5.4 L Albumin 2.6 L Globulin 2.80 Albumin/Globulin Ratio 0.92 Medications Medication Current Medications Piperacillin Sod/ Tazobactam Sod 100 ml @ 200 mls/hr Q6 IVPB Last administered on 07/19/18 06:09; Admin Dose 200 MLS/HR; Start 07/17/18 at 06:00 Losartan Potassium (Cozaar) 100 mg DAILY PO Last administered on 07/19/18 08:09; Admin Dose 100 MG; Start 07/17/18 at 09:00 IV Flush (NS 3 ml) 3 ml PER PROTOCOL IV ; Start 07/17/18 at 01:00 Ondansetron HCl (Zofran Inj) 4 mg Q4 PRN IV NAUSEA/VOMITING Last administered on 07/17/18 15:33; Admin Dose 4 MG; Start 07/17/18 at 01:00 Acetaminophen (Tylenol Tab) 650 mg Q6H PRN PO .PAIN 1-3 OR TEMP; Start 07/17/18 at 01:00 Morphine Sulfate (morphine) 4 mg Q4H PRN IV .SEVERE PAIN 7-10 Last administered on 07/17/18 15:33; Admin Dose 4 MG; Start 07/17/18 at 01:00 Docusate Sodium (Colace) 100 mg Q12H PRN PO .CONSTIPATION; Start 07/17/18 at 01:00 Bisacodyl (Dulcolax) 5 mg DAILY PRN PO .CONSTIPATION; Start 07/17/18 at 01:00 Miscellaneous Information Patients own medicat... BID@10,16 XX ; Start 07/17/18 at 10:00 Lorazepam (Ativan) 1 mg Q2H PRN IV CONTROL WITHDRAWAL SYMPTOMS; Start 07/17/18 at 07:00 Multivitamins Therapeutic (Theragran) 1 tab DAILY PO Last administered on 07/19/18 08:09; Admin Dose 1 TAB; Start 07/18/18 at 09:00 Thiamine HCl (Vitamin B1) 200 mg DAILY PO Last administered on 07/19/18 08:09; Admin Dose 200 MG; Start 07/17/18 at 09:00; Stop 07/22/18 at 08:59 Folic Acid (Folic Acid) 1 mg DAILY PO Last administered on 07/19/18 08:09; Admin Dose 1 MG; Start 07/17/18 at 09:00 Potassium Chloride/Sodium Chloride 1,000 ml @ 100 mls/hr Q10H IV Last administered on 07/19/18 00:10; Admin Dose 100 MLS/HR; Start 07/17/18 at 12:30 Chlordiazepoxide (Librium) 25 mg BID PO Last administered on 07/19/18 08:08; Admin Dose 25 MG; Start 07/19/18 at 09:00 Pantoprazole (Protonix Tab) 40 mg BID@18 PO Last administered on 07/19/18 06:08; Admin Dose 40 MG; Start 07/18/18 at 18:00 Sucralfate (Carafate) 1 gm QID PO Last administered on 07/19/18 08:09; Admin Dose 1 GM; Start 07/18/18 at 11:00 Cholecalciferol (Vitamin D) 2,000 unit DAILY PO ; Start 07/19/18 at 09:00 JUNIOR ABBOTT MD July 19, 2018 09:14
[2018-07-19] MEDS: CIPROFLOXACIN 500 MG TAB PO SCH ×2 (11:51→17:45)
[2018-07-19] MEDS: CHOLECALCIFEROL 2,000 UNIT CAP PO SCH (11:52)
[2018-07-19] MEDS: metroNIDAZOLE 500 MG TAB PO SCH ×3 (11:52→21:34)
[2018-07-19] MEDS: LACTOBACILLUS RHAMNOSUS CAP PO SCH ×2 (12:59→21:32)
[2018-07-19 14:40] VITALS: BP 148/83; PULSE 72; RESP 18
--- NOTE | 2018-07-19 16:21 | PN ---
Date/Time of Note Date/Time of Note DATE: 07/19/18 TIME: 16:17 Assessment/Plan Lines/Catheters IV Catheter Type (from Nrs): Peripheral IV Assessment/Plan Chief Complaint/Hosp Course 1. Acute abdominal pain, much improved 2. Diarrhea, improved 3. Nausea vomiting, improved 3. Leukocytosis, resolved 4. Acute appendicitis without appendicolith -Medical management chosen by patient and thus far successful -Diet as tolerated -dc planning per medical team with oral abx 5. Diabetes, hypertension, dyslipidemia -Nutrition and medication optimization 6. Heavy alcohol consumption -Cessation highly encouraged. Thank you. Patient seen and examined in collaboration with Dr. Carlito Amezquita. Subjective 24 Hr Interval Summary Feels much improved. Minimal nausea without vomiting. Abdominal pain much improved. No fevers, chills, sob, congested cough, cp, palpitations, kam, dizziness, nausea, vomiting, diarrhea, dysuria. Exam/Review of Systems Vital Signs Vitals Vital Signs Date Temp Pulse Resp B/P (MAP) Pulse Ox O2 O2 Flow FiO2 Time Delivery Rate 07/19/18 99.2 72 18 148/83 93 Room Air 14:40 (104) Intake and Output 07/18/18 07/18/18 07/19/18 1515:00 23:00 07:00 IntakeIntake Total 2000 ml 1170 ml 1860 ml OutputOutput Total 650 ml 201 ml 400 ml BalanceBalance 1350 ml 969 ml 1460 ml Exam Free Text/Dictation Constitutional: alert, oriented; No distress Psych: nl mood/affect; No anxiety Head: normocephalic, atraumatic Eyes: nl conjunctiva, EOMI; No PERRL ENMT: nl external ears & nose, mucosa pink and moist Neck: supple, non-tender; No jvd Respiratory: normal air movement; No congested cough, No labored breathing Cardiovascular: regular rate and rhythm; No edema Gastrointestinal: soft, NT No distended, No rebound or guarding Genitourinary - Male: nl penis, nl scrotum Musculoskeletal: nl extremities to inspection, other (Right clavicular deformity); No joint tenderness Extremities: normal pulses; No calf tenderness Neurological: nl mental status, nl speech, nl strength Skin: nl turgor; No rash or lesions, No diaphoresis Lymph: nl lymph nodes Results Result Diagram: 07/19/18 0457 07/19/18 045 CHAD MERCADO NP July 19, 2018 16:21
[2018-07-19 20:00] VITALS: BP 140/84; PULSE 78; RESP 18
[2018-07-20 02:00] VITALS: BP 145/82; PULSE 73; RESP 18
[2018-07-20] MEDS: metroNIDAZOLE 500 MG TAB PO SCH ×3 (05:59→21:21)
[2018-07-20] MEDS: PANTOPRAZOLE (EC) 40 MG TAB PO SCH ×2 (05:59→17:46)
[2018-07-20] MEDS: CIPROFLOXACIN 500 MG TAB PO SCH ×2 (05:59→17:48)
[2018-07-20 07:44] VITALS: BP 140/88; PULSE 69; RESP 18
[2018-07-20] MEDS: MULTIVITAMINS THERAPEUTIC TAB PO SCH (08:43)
[2018-07-20] MEDS: THIAMINE 100 MG TAB PO SCH (08:44)
[2018-07-20] MEDS: SUCRALFATE 1 GM TAB PO SCH ×4 (08:44→21:27)
[2018-07-20] MEDS: CHOLECALCIFEROL 2,000 UNIT CAP PO SCH (08:44)
[2018-07-20] MEDS: FOLIC ACID 1 MG TAB PO SCH (08:44)
[2018-07-20] MEDS: LACTOBACILLUS RHAMNOSUS CAP PO SCH ×3 (08:44→21:27)
[2018-07-20] MEDS: LOSARTAN 50 MG TAB PO SCH (08:44)
[2018-07-20] MEDS ORDERED: CHLORDIAZEPOXIDE 25 MG CAP PO SCH (09:00)
--- NOTE | 2018-07-20 09:20 | PN ---
Date/Time of Note Date/Time of Note DATE: 07/20/18 TIME: 09:20 Assessment/Plan VTE Prophylaxis Risk score (from Ns)>0 risk: 2 SCD applied (from Ns): Yes Pharmacological prophylaxis: NA/contraindicated Pharm contraindication: bleeding Lines/Catheters IV Catheter Type (from Nrsg): Saline Lock Assessment/Plan Assessment/Plan 1. Acute appendicitis- resolving - Gen surgery recommendations are appreciated. Continue on PO antibiotics and current diet. - continue pain control 2. heavy alcohol use - etoh levels negative - continue librium taper 3. Epigastric discomfort- improving - continue on PPI and Carafate - most likely with gastritis given ETOH abuse 4. HTN - continue losartan and will adjust as needed 5. Diarrhea - most likely from antibiotics. Probiotics on board and patient now on regular diet - mentioned presence of blood and will check FOBT. most likely residual from irritation from diarrhea episodes 6. Disposition - Monitor for improvement in diarrhea. Once improves and tolerating diet, will d/c home. Anticipate d/c tomorrow Result Diagram: 07/20/18 0447 07/20/187 Results 24hrs Laboratory Tests Test 07/20/18 04:47 White Blood Count 8.7 Red Blood Count 3.96 L Hemoglobin 11.4 L Hematocrit 34.4 L Mean Corpuscular Volume 86.9 Mean Corpuscular Hemoglobin 28.8 L Mean Corpuscular Hemoglobin Concent 33.1 Red Cell Distribution Width 15.5 H Platelet Count 225 Mean Platelet Volume 10.0 Immature Granulocytes % 0.500 H Neutrophils % 56.3 Lymphocytes % 15.3 Monocytes % 14.5 H Eosinophils % 12.9 H Basophils % 0.5 Nucleated Red Blood Cells % 0.0 Immature Granulocytes # 0.040 H Neutrophils # 4.9 Lymphocytes # 1.3 Monocytes # 1.3 H Eosinophils # 1.1 H Basophils # 0.0 Nucleated Red Blood Cells # 0.0 Sodium Level 137 Potassium Level 3.8 Chloride Level 108 Carbon Dioxide Level 25 Anion Gap 4 L Blood Urea Nitrogen 7 Creatinine 0.68 Est Glomerular Filtrat Rate mL/min > 60 Glucose Level 122 Calcium Level 8.6 Total Bilirubin 0.2 Direct Bilirubin 0.00 Indirect Bilirubin 0.2 Aspartate Amino Transf (AST/SGOT) 15 Alanine Aminotransferase (ALT/SGPT) 13 Alkaline Phosphatase 50 Total Protein 5.6 L Albumin 2.8 L Globulin 2.80 Albumin/Globulin Ratio 1.00 Subjective 24 Hr Interval Summary Free Text/Dictation Patient states he still has watery diarrhea which has been causing abdominal discomfort. Admits to small amount of blood as well. Exam/Review of Systems Exam Vitals Vital Signs Date Temp Pulse Resp B/P (MAP) Pulse Ox O2 O2 Flow FiO2 Time Delivery Rate 07/20/18 98.0 69 18 140/88 96 Room Air 07:44 (105) Intake and Output 07/19/18 07/19/18 07/20/18 1515:00 23:00 07:00 IntakeIntake Total 1920 ml 1420 ml OutputOutput Total 900 ml 300 ml 1400 ml BalanceBalance 1020 ml 1120 ml -1400 ml Exam General: no acute distress, answering questions appropriately Neck: Supple Chest: Nontender Lungs: Clear to auscultation bilaterally no crackles rales or wheezing Heart: Normal S1-S2, Regular rhythm and rate. No overt murmurs appreciated on auscultation Abdomen: Soft, minimally tenderness below umbilicus. Normal bowel sounds. Extremities: Normal to inspection, no edema no cyanosis Results Results 24hrs Laboratory Tests Test 07/20/18 04:47 White Blood Count 8.7 Red Blood Count 3.96 L Hemoglobin 11.4 L Hematocrit 34.4 L Mean Corpuscular Volume 86.9 Mean Corpuscular Hemoglobin 28.8 L Mean Corpuscular Hemoglobin Concent 33.1 Red Cell Distribution Width 15.5 H Platelet Count 225 Mean Platelet Volume 10.0 Immature Granulocytes % 0.500 H Neutrophils % 56.3 Lymphocytes % 15.3 Monocytes % 14.5 H Eosinophils % 12.9 H Basophils % 0.5 Nucleated Red Blood Cells % 0.0 Immature Granulocytes # 0.040 H Neutrophils # 4.9 Lymphocytes # 1.3 Monocytes # 1.3 H Eosinophils # 1.1 H Basophils # 0.0 Nucleated Red Blood Cells # 0.0 Sodium Level 137 Potassium Level 3.8 Chloride Level 108 Carbon Dioxide Level 25 Anion Gap 4 L Blood Urea Nitrogen 7 Creatinine 0.68 Est Glomerular Filtrat Rate mL/min > 60 Glucose Level 122 Calcium Level 8.6 Total Bilirubin 0.2 Direct Bilirubin 0.00 Indirect Bilirubin 0.2 Aspartate Amino Transf (AST/SGOT) 15 Alanine Aminotransferase (ALT/SGPT) 13 Alkaline Phosphatase 50 Total Protein 5.6 L Albumin 2.8 L Globulin 2.80 Albumin/Globulin Ratio 1.00 Medications Medication Current Medications Losartan Potassium (Cozaar) 100 mg DAILY PO Last administered on 07/20/18 08:44; Admin Dose 100 MG; Start 07/17/18 at 09:00 IV Flush (NS 3 ml) 3 ml PER PROTOCOL IV ; Start 07/17/18 at 01:00 Ondansetron HCl (Zofran Inj) 4 mg Q4 PRN IV NAUSEA/VOMITING Last administered on 07/17/18 15:33; Admin Dose 4 MG; Start 07/17/18 at 01:00 Acetaminophen (Tylenol Tab) 650 mg Q6H PRN PO .PAIN 1-3 OR TEMP Last administered on 07/20/18 03:45; Admin Dose 650 MG; Start 07/17/18 at 01:00 Morphine Sulfate (morphine) 4 mg Q4H PRN IV .SEVERE PAIN 7-10 Last administered on 07/17/18 15:33; Admin Dose 4 MG; Start 07/17/18 at 01:00 Docusate Sodium (Colace) 100 mg Q12H PRN PO .CONSTIPATION; Start 07/17/18 at 01:00 Bisacodyl (Dulcolax) 5 mg DAILY PRN PO .CONSTIPATION; Start 07/17/18 at 01:00 Miscellaneous Information Patients own medicat... BID@10,16 XX ; Start 07/17/18 at 10:00 Lorazepam (Ativan) 1 mg Q2H PRN IV CONTROL WITHDRAWAL SYMPTOMS; Start 07/17/18 at 07:00 Multivitamins Therapeutic (Theragran) 1 tab DAILY PO Last administered on 07/20/18 08:43; Admin Dose 1 TAB; Start 07/18/18 at 09:00 Thiamine HCl (Vitamin B1) 200 mg DAILY PO Last administered on 07/20/18 08:44; Admin Dose 200 MG; Start 07/17/18 at 09:00; Stop 07/22/18 at 08:59 Folic Acid (Folic Acid) 1 mg DAILY PO Last administered on 07/20/18 08:44; Admin Dose 1 MG; Start 07/17/18 at 09:00 Pantoprazole (Protonix Tab) 40 mg BID@,18 PO Last administered on 07/20/18 05:59; Admin Dose 40 MG; Start 07/18/18 at 18:00 Sucralfate (Carafate) 1 gm QID PO Last administered on 07/20/18 08:44; Admin Dose 1 GM; Start 07/18/18 at 11:00 Cholecalciferol (Vitamin D) 2,000 unit DAILY PO Last administered on 07/20/18 08:44; Admin Dose 2,000 UNIT; Start 07/19/18 at 09:00 Lactobacillus Acidophilus/ Rhamnosus (Culturelle) 1 cap TID PO Last administered on 07/20/18 08:44; Admin Dose 1 CAP; Start 07/19/18 at 13:00 Ciprofloxacin (Cipro) 500 mg BID@18 PO Last administered on 07/20/18 05:59; Admin Dose 500 MG; Start 07/19/18 at 10:00 Metronidazole (Flagyl) 500 mg Q8 PO Last administered on 07/20/18 05:59; Admin Dose 500 MG; Start 07/19/18 at 10:00 Chlordiazepoxide (Librium) 25 mg DAILY PO Last administered on 07/20/18 08:44; Admin Dose 25 MG; Start 07/20/18 at 09:00; Stop 07/21/18 at 08:59 JUNIOR ABBOTT MD July 20, 2018 09:20
[2018-07-20 13:14] VITALS: Ht 165.1 cm; Wt 62.0 kg
--- NOTE | 2018-07-20 13:32 | PN ---
Date/Time of Note Date/Time of Note DATE: 07/20/18 TIME: 13:29 Assessment/Plan Lines/Catheters IV Catheter Type (from [facility]): Saline Lock Assessment/Plan Chief Complaint/Hosp Course 1. Acute abdominal pain, resolved 2. Diarrhea, improved 3. Nausea vomiting, improved 3. Leukocytosis, resolved 4. Acute appendicitis without appendicolith -Medical management chosen by patient and thus far successful -Diet as tolerated -dc planning per medical team with oral abx 5. Diabetes, hypertension, dyslipidemia -Nutrition and medication optimization 6. Heavy alcohol consumption -Cessation highly encouraged. Thank you. Patient seen and examined in collaboration with Dr. Carlito Amezquita. Subjective 24 Hr Interval Summary Diarrhea. No abdominal pain. No fevers, chills, sob, congested cough, cp, palpitations, kam, dizziness, n/v/d/dysuria. Exam/Review of Systems Vital Signs Vitals Vital Signs Date Temp Pulse Resp B/P (MAP) Pulse Ox O2 O2 Flow FiO2 Time Delivery Rate 07/20/18 98.0 69 18 140/88 96 Room Air 07:44 (105) Intake and Output 07/19/18 07/19/18 07/20/18 1414:59 22:59 06:59 IntakeIntake Total 1920 ml 1420 ml OutputOutput Total 900 ml 300 ml 1400 ml BalanceBalance 1020 ml 1120 ml -1400 ml Exam Free Text/Dictation Constitutional: alert, oriented; No distress Psych: nl mood/affect; No anxiety Head: normocephalic, atraumatic Eyes: nl conjunctiva, EOMI; No PERRL ENMT: nl external ears & nose, mucosa pink and moist Neck: supple, non-tender; No jvd Respiratory: normal air movement; No congested cough, No labored breathing Cardiovascular: regular rate and rhythm; No edema Gastrointestinal: soft, NT No distended, No rebound or guarding Genitourinary - Male: nl penis, nl scrotum Musculoskeletal: nl extremities to inspection, other (Right clavicular deformity); No joint tenderness Extremities: normal pulses; No calf tenderness Neurological: nl mental status, nl speech, nl strength Skin: nl turgor; No rash or lesions, No diaphoresis Lymph: nl lymph nodes Results Result Diagram: 07/20/18 0447 07/20/18 0447 CHAD MERCADO NP July 20, 2018 13:32
[2018-07-20 14:16] VITALS: BP 159/77; PULSE 65; RESP 18
[2018-07-20 20:33] VITALS: BP 158/81; PULSE 63; RESP 18
[2018-07-21 02:49] VITALS: BP 145/78; PULSE 63; RESP 18
[2018-07-21] MEDS: CIPROFLOXACIN 500 MG TAB PO SCH (05:35)
[2018-07-21] MEDS: metroNIDAZOLE 500 MG TAB PO SCH ×2 (05:35→13:11)
[2018-07-21] MEDS: PANTOPRAZOLE (EC) 40 MG TAB PO SCH (05:35)
[2018-07-21 07:15] VITALS: BP 167/81; PULSE 58; RESP 17
[2018-07-21] MEDS: CHOLECALCIFEROL 2,000 UNIT CAP PO SCH (08:07)
[2018-07-21] MEDS: LOSARTAN 50 MG TAB PO SCH (08:07)
[2018-07-21] MEDS: FOLIC ACID 1 MG TAB PO SCH (08:07)
[2018-07-21] MEDS: LACTOBACILLUS RHAMNOSUS CAP PO SCH ×2 (08:07→13:11)
[2018-07-21] MEDS: THIAMINE 100 MG TAB PO SCH (08:07)
[2018-07-21] MEDS: SUCRALFATE 1 GM TAB PO SCH ×2 (08:07→13:11)
[2018-07-21] MEDS: MULTIVITAMINS THERAPEUTIC TAB PO SCH (08:07)
--- NOTE | 2018-07-21 10:52 | PN ---
Date/Time of Note Date/Time of Note DATE: 07/21/18 TIME: 10:50 Assessment/Plan Lines/Catheters IV Catheter Type (from Nrs): Peripheral IV Assessment/Plan Chief Complaint/Hosp Course 1. Acute abdominal pain, resolved 2. Diarrhea, improved 3. Nausea vomiting, improved 3. Leukocytosis, resolved 4. Acute appendicitis without appendicolith -Medical management chosen by patient and thus far successful -Diet as tolerated -dc planning per medical team with oral abx (total iv and oral tx for 10days) 5. Diabetes, hypertension, dyslipidemia -Nutrition and medication optimization 6. Heavy alcohol consumption -Cessation highly encouraged. Thank you Subjective 24 Hr Interval Summary Diarrhea improved. No abdominal pain. No fevers, chills, sob, congested cough, cp, palpitations, kam, dizziness, n/v/d/dysuria. Exam/Review of Systems Vital Signs Vitals Vital Signs Date Temp Pulse Resp B/P (MAP) Pulse Ox O2 O2 Flow FiO2 Time Delivery Rate 07/21/18 98.7 58 17 167/81 97 Room Air 07:15 (109) Intake and Output 07/20/18 07/20/18 07/21/18 1515:00 23:00 07:00 IntakeIntake Total 1080 ml 500 ml 240 ml OutputOutput Total 1100 ml 250 ml 1200 ml BalanceBalance -20 ml 250 ml -960 ml Exam Free Text/Dictation Constitutional: alert, oriented; No distress Psych: nl mood/affect; No anxiety Head: normocephalic, atraumatic Eyes: nl conjunctiva, EOMI; No PERRL ENMT: nl external ears & nose, mucosa pink and moist Neck: supple, non-tender; No jvd Respiratory: normal air movement; No congested cough, No labored breathing Cardiovascular: regular rate and rhythm; No edema Gastrointestinal: soft, NT No distended, No rebound or guarding Genitourinary - Male: nl penis, nl scrotum Musculoskeletal: nl extremities to inspection, other (Right clavicular deformity); No joint tenderness Extremities: normal pulses; No calf tenderness Neurological: nl mental status, nl speech, nl strength Skin: nl turgor; No rash or lesions, No diaphoresis Lymph: nl lymph nodes Results Result Diagram: 07/20/18 0447 07/20/18 0447 MYRA CHENG MD July 21, 2018 10:52
--- NOTE | 2018-07-21 12:10 | PN ---
Date/Time of Note Date/Time of Note DATE: 07/21/18 TIME: 12:09 Assessment/Plan VTE Prophylaxis Risk score (from Nsg)>0 risk: 3 SCD applied (from Nsg): Yes Pharmacological prophylaxis: NA/contraindicated Pharm contraindication: low risk/ambulating Lines/Catheters IV Catheter Type (from Nrsg): Peripheral IV Assessment/Plan Assessment/Plan 1. Acute appendicitis- resolved - Gen surgery recommendations are appreciated. Continue on PO antibiotics until 07/26 - continue pain control 2. heavy alcohol use - etoh levels negative - completed librium taper 3. Epigastric discomfort- resolved - continue on PPI and Carafate - most likely with gastritis given ETOH abuse 4. HTN - continue losartan and will adjust as needed 5. Diarrhea- resolved 6. Disposition - Stable for discharge home Result Diagram: 07/20/1844607/20/18446 Results 24hrs Laboratory Tests Test 07/20/18 12:20 Stool Occult Blood NEGATIVE Subjective 24 Hr Interval Summary Free Text/Dictation Patient is doing well and denies any further GI issues. Ready for discharge home. Exam/Review of Systems Exam Vitals Vital Signs Date Temp Pulse Resp B/P (MAP) Pulse Ox O2 O2 Flow FiO2 Time Delivery Rate 07/21/18 98.7 58 17 167/81 97 Room Air 07:15 (109) Intake and Output 07/20/18 07/20/18 07/21/18 1515:00 23:00 07:00 IntakeIntake Total 1080 ml 500 ml 240 ml OutputOutput Total 1100 ml 250 ml 1200 ml BalanceBalance -20 ml 250 ml -960 ml Exam General: no acute distress, answering questions appropriately Neck: Supple Chest: Nontender Lungs: Clear to auscultation bilaterally no crackles rales or wheezing Heart: Normal S1-S2, Regular rhythm and rate. No overt murmurs appreciated on auscultation Abdomen: Soft,nontender, nondistended. Normal bowel sounds. Extremities: Normal to inspection, no edema no cyanosis Results Results 24hrs Laboratory Tests Test 07/20/18 12:20 Stool Occult Blood NEGATIVE Medications Medication Current Medications Losartan Potassium (Cozaar) 100 mg DAILY PO Last administered on 07/21/18at 08:07; Admin Dose 100 MG; Start 07/17/18 at 09:00 IV Flush (NS 3 ml) 3 ml PER PROTOCOL IV ; Start 07/17/18 at 01:00 Ondansetron HCl (Zofran Inj) 4 mg Q4 PRN IV NAUSEA/VOMITING Last administered on 07/17/18 15:33; Admin Dose 4 MG; Start 07/17/18 at 01:00 Acetaminophen (Tylenol Tab) 650 mg Q6H PRN PO .PAIN 1-3 OR TEMP Last administered on 07/20/18 03:45; Admin Dose 650 MG; Start 07/17/18 at 01:00 Morphine Sulfate (morphine) 4 mg Q4H PRN IV .SEVERE PAIN 7-10 Last administered on 07/17/18 15:33; Admin Dose 4 MG; Start 07/17/18 at 01:00 Docusate Sodium (Colace) 100 mg Q12H PRN PO .CONSTIPATION; Start 07/17/18 at 01:00 Bisacodyl (Dulcolax) 5 mg DAILY PRN PO .CONSTIPATION; Start 07/17/18 at 01:00 Miscellaneous Information Patients own medicat... BID@16 XX ; Start 07/17/18 at 10:00 Lorazepam (Ativan) 1 mg Q2H PRN IV CONTROL WITHDRAWAL SYMPTOMS; Start 07/17/18 at 07:00 Multivitamins Therapeutic (Theragran) 1 tab DAILY PO Last administered on 07/21/18 08:07; Admin Dose 1 TAB; Start 07/18/18 at 09:00 Thiamine HCl (Vitamin B1) 200 mg DAILY PO Last administered on 07/21/18 08:07; Admin Dose 200 MG; Start 07/17/18 at 09:00; Stop 07/22/18 at 08:59 Folic Acid (Folic Acid) 1 mg DAILY PO Last administered on 07/21/18 08:07; Admin Dose 1 MG; Start 07/17/18 at 09:00 Pantoprazole (Protonix Tab) 40 mg BID@,18 PO Last administered on 07/21/18 05:35; Admin Dose 40 MG; Start 07/18/18 at 18:00 Sucralfate (Carafate) 1 gm QID PO Last administered on 07/21/18 08:07; Admin Dose 1 GM; Start 07/18/18 at 11:00 Cholecalciferol (Vitamin D) 2,000 unit DAILY PO Last administered on 07/21/18 08:07; Admin Dose 2,000 UNIT; Start 07/19/18 at 09:00 Lactobacillus Acidophilus/ Rhamnosus (Culturelle) 1 cap TID PO Last administered on 07/21/18 08:07; Admin Dose 1 CAP; Start 07/19/18 at 13:00 Ciprofloxacin (Cipro) 500 mg BID@06,18 PO Last administered on 07/21/18 05:35; Admin Dose 500 MG; Start 07/19/18 at 10:00 Metronidazole (Flagyl) 500 mg Q8 PO Last administered on 07/21/18 05:35; Admin Dose 500 MG; Start 07/19/18 at 10:00 JUNIOR ABOBTT MD July 21, 2018 12:10
[2018-07-21] MEDS ORDERED: METR500T PO (12:12)
[2018-07-21] MEDS ORDERED: CIPR500T4 PO (12:12)
[2018-07-21] MEDS ORDERED: PANT40TA4 PO (12:12)
[2018-07-21] MEDS ORDERED: MULTI PO (12:12)
[2018-07-21] MEDS ORDERED: CHOL200073 PO (12:12)
[2018-07-21] MEDS ORDERED: SUCR1TAB35 PO (12:12)
--- NOTE | 2018-07-21 12:14 | PDOCDIS ---
Discharge Instructions DIAGNOSIS Discharge Diagnosis 1. Acute appendicitis- resolved 2. heavy alcohol use 3. Epigastric discomfort- resolving 4. HTN 5. Diarrhea- resolved CONDITION [id number] Patient Condition: [id number] Stable HOME CARE INSTRUCTIONS: [id number] Diet Instructions: [id number] Low Fat /Cholesterol ACTIVITY: [id number] Activity Restrictions: [id number] No Restrictions FOLLOW UP/APPOINTMENTS Follow-up Plan 1. Follow up with your primary care physician in 1-2 weeks 2. Continue on antibiotics, Ciprofloxacin twice a day with next dose today (07/21) with dinner and Flagyl three times a day with next dose today (07/21) with dinner 3. It is important to avoid drinking alcohol 4. Take Pantoprazole twice a day and Carafate four times a day to help with acid reflux symptoms that have been worsened by alcohol use 5. If experiencing any concerning symptoms please go to your nearest emergency department JUNIOR ABBOTT MD July 21, 2018 12:14
--- NOTE | 2018-07-21 14:01 | DS ---
Date/Time of Note Date/Time of Note DATE: 07/21/18 TIME: 13:59 Discharge Summary Admission/Discharge Info Admit Date/Time July 17, 2018 at 00:34 Discharge Date/Time 07/21/18 Discharge Diagnosis 1. Acute appendicitis- resolved 2. heavy alcohol use 3. Epigastric discomfort- resolving 4. HTN 5. Diarrhea- resolved Patient Condition: Stable Consults General Surgery- Dr. Alirio Muro of Present Illness Complaint: Abdominal pain x2 days This is a 67-year-old homeless male complaining of mid abdominal pain/right mid abdominal pain with nausea vomiting diarrhea for the past 2 days. Vomiting is nonbilious nonbloody. No blood in his diarrhea there is no melena or tarry stools. He says he has a burning epigastrium. He does report subjective fevers. He says he has a history of ulcers and gastritis in the past. He denies any chest pain or shortness of breath. She does report that he drinks 32 ounces of alcohol on a daily basis. His last drink was yesterday. Allergies: NKDA Hospital Course Patient was admitted for evaluation of acute appendicitis by general surgery and opted for medical management. Patient was started on IV antibiotics and given pain control. Patients diet was advanced after pain improved with PPI and Carafate and was tolerating PO intake. Given patients history of alcohol abuse, he received a quick librium taper without any withdrawal symptoms appreciated. Patients was tolerating PO intake and pain resolved. Patient was discharged home in good condition. Home Meds Active Scripts Cholecalciferol (Vitamin D3) (VITAMIN D-3) 2,000 Unit Capsule, 2000 UNIT PO DAILY for 30 Days, #30 CAP Prov:JUNIOR ABBOTT MD 07/21/18 Multivitamins* (Theragran*) 1 Tab Tab, 1 TAB PO DAILY for 30 Days, #30 TAB Prov:JUNIOR ABBOTT MD 07/21/18 Sucralfate (Carafate) 1 Gm Tablet, 1 GM PO QID for 14 Days, #56 TAB Prov:JUNIOR ABBOTT MD 07/21/18 Pantoprazole* (Pantoprazole*) 40 Mg Tablet.dr 40 MG PO BID@06,18 for 30 Days, #60 TAB 1 Refill Prov:JUNIOR ABBOTT MD 07/21/18 Metronidazole* (Flagyl*) 500 Mg Tablet, 500 MG PO Q8 for 6 Days, #16 TAB Prov:JUNIOR ABBOTT MD 07/21/18 Ciprofloxacin Hcl* (Ciprofloxacin Hcl*) 500 Mg Tablet, 500 MG PO BID@06,18 for 6 Days, #11 TAB Prov:JUNIOR ABBOTT MD 07/21/18 Reported Medications Losartan Potassium* (Losartan Potassium*) 100 Mg Tablet, 100 MG PO DAILY, TAB 07/17/18 Discontinued Reported Medications Naproxen* (Naproxen*) 500 Mg Tablet, 500 MG PO BID PRN for PAIN, TAB 07/17/18 Ranitidine Hcl* (Ranitidine Hcl*) 150 Mg Tablet, 150 MG PO HS, #30 TAB 07/17/18 Cholecalciferol* (Vitamin D3*) 1,000 Unit Tablet, 1000 UNIT PO BID, TAB 10/01/14 Ibuprofen* (Ibuprofen*) 400 Mg Tablet, 400 MG PO Q12 PRN for PAIN, TAB 10/01/14 Discontinued Scripts Hydrocodone Bit-Acetaminophen* (Lyons*) 10-325 Mg Tablet, 1 TAB PO Q6 PRN for PAIN, #7 TAB Prov:JOSEPH REYNOSO MD 10/01/14 Ciprofloxacin Hcl* (Ciprofloxacin Hcl*) 500 Mg Tablet, 500 MG PO BID for 7 Days, TAB Prov:JOSEPH REYNOSO MD 10/01/14 Follow-up Plan 1. Follow up with your primary care physician in 1-2 weeks 2. Continue on antibiotics, Ciprofloxacin twice a day with next dose today (07/21) with dinner and Flagyl three times a day with next dose today (20) with dinner 3. It is important to avoid drinking alcohol 4. Take Pantoprazole twice a day and Carafate four times a day to help with acid reflux symptoms that have been worsened by alcohol use 5. If experiencing any concerning symptoms please go to your nearest emergency department Primary Care Provider Care Physician No Primary Time spent on discharge: > 30 minutes JUNIOR ABBOTT MD July 21, 2018 14:01
[2018-07-21 14:31] VITALS: PULSE 72; RESP 17
[2018-07-21 15:11] VITALS: BP 180/88
[2018-07-21] MEDS ORDERED: hydrALAzine 20 MG INJ IV ONE (15:30)
[2018-07-21 15:44] VITALS: BP 175/83; PULSE 74
[2018-07-21 16:30] VITALS: BP 130/66; PULSE 93
== END 2018-07-21 17:30 | disposition home or self-care (01) | DRG 395 ==
LOC: E/R 18:39 → 2NE 07-17 00:34
PROVIDERS: ADMIT Family Medicine; ATTEND Internal Medicine
DX: K35.80 Unspecified acute appendicitis (principal); I10 Essential (primary) hypertension; E11.9 Type 2 diabetes mellitus without complications; F10.10 Alcohol abuse, uncomplicated; E78.5 Hyperlipidemia, unspecified; R19.7 Diarrhea, unspecified; Z87.11 Personal history of peptic ulcer disease; Z89.421 Acquired absence of other right toe(s); Z59.0 Homelessness
CPT/HCPCS: 73000; 74177; 76705; 80053; 80061; 80307; 82270; 82306; 83036; 83690; 83735; 84443; 85025; 96374; 96375; J0360; J1170; J1335; J2270; J2405; J2543; J3411; J3480; J7030; Q9967